=== PATIENT | male | born 1990 | race Caucasian/White ===

== ENCOUNTER 2024-06-19 02:16 | Emergency (ER) | payer SELFPAY ==
[2024-06-19] VITALS (59 sets, daily range): BP systolic 63–125; BP diastolic 47–83
[~2024-06-19] VITALS: Ht 180.3 cm; Wt 90.7 kg
[~2024-06-19 02:16] MED LIST: KEPPRA500 M2 PO
[2024-06-19] MEDS ORDERED: SODIUM CHLORIDE 0.9% 1,000 ML IV ONE ×2 (02:35→12:30)
[2024-06-19 02:46] LABS: BASO% 0.2 % (0-3); EOS% 0.1 % (0-8); LYMPH% 6.4 % (15-41); MEAN CELL VOLUME 91.7 fL CALC (80.0-100.0); MEAN CORPUSCULAR HGB 28.5 pG CALC (26.0-32.0); MEAN CORPUSCULAR HGB CONC 31.1 g/dL CAL (32.0-36.0); MONO% 8.4 % (2-13); NEUT# 9.24 thou/uL (1.82-7.42); NEUT% 76.2 % (42-76); RED BLOOD COUNT 4.56 mill/uL (4.70-6.10); RED CELL DISTRI WIDTH 16.9 % (11.5-15.5)
[2024-06-19 02:59] LABS: ALBUMIN 3.9 g/dL (3.2-5.0); BILIRUBIN, TOTAL 0.4 mg/dL (0.2-1.3); CREATININE 0.7 mg/dL (0.7-1.3); HEMATOCRIT 41.8 % (39.0-50.0); IMMATURE GRANULOCYTES 8.7 % (0.0-5.0); TOTAL PROTEIN 6.4 g/dL (6.3-8.2)
[2024-06-19 03:41] LABS: URINE BILIRUBIN - DIPSTICK Negative (NEGATIVE); URINE BLOOD DIPSTICK Negative (NEGATIVE); URINE GLUCOSE - DIPSTICK 500 mg/dL (NEGATIVE); URINE KETONE Negative (NEGATIVE); URINE LEUK ESTERASE Negative (NEGATIVE); URINE NITRITE - DIPSTICK Negative (Negative); URINE PH 5.5 (4.5-8.0); URINE PROTEIN - DIPSTICK Negative (NEG-TRACE); URINE SPECIFIC GRAVITY 1.025; URINE UROBILINOGEN - DIPSTICK 0.2 E.U./dL (0.2)
[2024-06-19 03:42] LABS: URINE COLOR Yellow
[2024-06-19] MEDS ORDERED: DECADRON4 MG PO (03:50)
[2024-06-19] MEDS ORDERED: KEPPRA1000 MG PO (03:50)
[2024-06-19] MEDS ORDERED: INSULIN REGULAR (HUMAN) 100 UNIT/ML INJ IV ONE (04:45)
[2024-06-19] MEDS ORDERED: INSULIN REGULAR (HUMAN) 100 UNIT/ML INJ SC ONE (04:45)
[2024-06-19] MEDS ORDERED: METFORMIN HCL500 M1 PO (04:54)
[2024-06-19] MEDS ORDERED: JARDIANCE10 MG PO (04:54)
[2024-06-19] MEDS ORDERED: DEXAMETHASONE SODIUM PHOSPHATE 4 MG/VIAL SDV IV ONE (10:35)
[2024-06-19] MEDS ORDERED: LORazepam 2 MG/ML IV ONE (11:10)
== END 2024-06-19 16:51 | disposition designated cancer center or children's hospital (05) | DRG 101 ==
LOC: ED 02:16
PROVIDERS: Family Medicine
DX: G40.909 Epilepsy, unspecified, not intractable, without status epilepticus (principal); C71.9 Malignant neoplasm of brain, unspecified; C79.31 Secondary malignant neoplasm of brain; R73.9 Hyperglycemia, unspecified; S01.511A Laceration without foreign body of lip, initial encounter; X58.XXXA Exposure to other specified factors, initial encounter; Z79.60 Long term (current) use of unspecified immunomodulators and immunosuppressants; Z98.2 Presence of cerebrospinal fluid drainage device; Z74.01 Bed confinement status
CPT/HCPCS: J1953; J2060